=== PATIENT | male | born 1970 | race Caucasian/White ===

== ENCOUNTER 2024-07-10 12:31 | Emergency (ER) | payer OTHER, BC ==
[~2024-07-10] VITALS: Ht 175.3 cm; Wt 136.7 kg
[2024-07-10] MEDS ORDERED: ISOVUE-370 76% 100ML VIAL As Ordered ONE (13:04)
[2024-07-10] MEDS: MORPHINE 2 MG/ML 1ML VIAL IV PRN (13:13)
[2024-07-10 13:18] LABS: BASO # 0.1 10^3/uL (0.0-0.2); BASO % 0.5 % (0.0-1.0); EOS # 0.1 10^3/uL (0.0-0.5); EOS % 1.4 % (0.0-3.0); HEMOGLOBIN 14.8 g/dl (13.5-17.5); LYMPH # 2.6 10^3/uL (1.5-5.0); LYMPH % 25.2 % (24.0-44.0); MEAN CORPUSCULAR HEMOGLOBIN 29.1 pg (27.0-33.0); MEAN CORPUSCULAR HGB CONC 32.9 g/dl (32.0-36.5); MEAN CORPUSCULAR VOLUME 88.6 fl (80.0-96.0); MONO # 0.8 10^3/uL (0.0-0.8); MONO % 7.4 % (2.0-8.0); NEUTROPHILS # 6.4 10^3/uL (1.5-8.5); NEUTROPHILS % 63.2 % (36.0-66.0); PLATELET COUNT, AUTOMATED 200 10^3/uL (150-450); RED BLOOD COUNT 5.08 10^6/uL (4.30-6.10); WHITE BLOOD COUNT 10.2 10^3/uL (4.0-10.0)
[2024-07-10 13:21] LABS: INR 0.93; PARTIAL THROMBOPLASTIN TIME 25.7 SECONDS (24.8-34.2); PROTHROMBIN TIME 12.8 SECONDS (12.5-14.5)
[2024-07-10 13:24] LABS: ETHYL ALCOHOL (ETHANOL) 0.007 % (0.000-0.010)
[2024-07-10 13:25] LABS: ALBUMIN 3.7 G/DL (3.2-5.2); ALKALINE PHOSPHATASE 71 U/L (40-129); ALT/SGPT 54 U/L (7.0-40); AST/SGOT 38 U/L (<34); BILIRUBIN,DIRECT < 0.1 MG/DL (<0.4); BILIRUBIN,TOTAL 0.4 MG/DL (0.3-1.2); CK-MB VALUE MASS 3.4 NG/ML (<3.6); TOTAL PROTEIN 6.9 G/DL (5.7-8.2)
[2024-07-10 13:27] LABS: CPK CREATINE PHOSPHOKINASE 315 U/L (46-171); MB/CK RELATIVE INDEX 1.07 (< OR =4)
[2024-07-10 14:27] LABS: AMPHETAMINES LEVEL URINE NEGATIVE (NEGATIVE); BARBITURATES URINE NEGATIVE (NEGATIVE); BENZODIAZEPINES URINE NEGATIVE (NEGATIVE); CANNABINOIDS URINE NEGATIVE (NEGATIVE); COCAINE METABOLITE URINE NEGATIVE (NEGATIVE); METHADONE URINE NEGATIVE (NEGATIVE); PHENCYCLIDINE URINE NEGATIVE (NEGATIVE)
[2024-07-10 14:30] LABS: CK-MB VALUE MASS 4.5 NG/ML (<3.6)
[2024-07-10 14:31] LABS: OPIATES URINE POSITIVE (NEGATIVE)
[2024-07-10] MEDS: PERCOCET 5MG/325MG TAB PO ONE (14:33)
[2024-07-10 14:34] LABS: MB/CK RELATIVE INDEX 1.13 (< OR =4)
[2024-07-10] MEDS: diazePAM 10MG/2ML SYRINGE IV ONE (15:55)
[2024-07-10] MEDS: KETOROLAC 30 MG/ML 1ML VIAL IV ONE (16:00)
[2024-07-10] MEDS ORDERED: PERC5TAB12 PO (17:09)
[2024-07-10] MEDS ORDERED: METH-1165 PO (17:09)
[2024-07-10] MEDS ORDERED: ONDA-282 PO (17:09)
[2024-07-10] MEDS ORDERED: KETO10TAB PO (17:09)
[2024-07-10 17:15] VITALS: BP 123/58; TEMP 97.6; O2SAT 95
== END 2024-07-10 17:20 | disposition home or self-care (01) ==
LOC: M ED 12:31 → EDBD 12:31 → M ED 17:20
DX: S32.020A Wedge compression fracture of second lumbar vertebra, initial encounter for closed fracture (principal); S32.030A Wedge compression fracture of third lumbar vertebra, initial encounter for closed fracture; S20.20XA Contusion of thorax, unspecified, initial encounter; V49.3XXA Car occupant (driver) (passenger) injured in unspecified nontraffic accident, initial encounter; M47.812 Spondylosis without myelopathy or radiculopathy, cervical region; Z79.83 Long term (current) use of bisphosphonates; Z79.899 Other long term (current) drug therapy; Y92.411 Interstate highway as the place of occurrence of the external cause; Y93.89 Activity, other specified; Y99.9 Unspecified external cause status
CPT/HCPCS: 70450; 70486; 71045; 71275; 72125; 72131; 80047; 80076; 80307; 82077; 82550; 82553; 84484; 85025; 85610; 85730; 86850; 86900; 86901; 93005; 93041; 94760; 96374; 96375; 99285; J1885; J3360; Q9967